=== PATIENT | male | born 1965 | race African-American/Black ===

== ENCOUNTER 2017-03-12 09:16 | Emergency (ER) | payer SELFPAY ==
[2017-03-12 10:07] LABS: #Basophils 0.1 thou/uL (0.0-0.2); #Lymphocytes 2.3 thou/uL (1.20-3.40); #Neutrophils 4.2 thou/uL (1.40-6.50); %Basophils 1.3 % (0.0-1.0); %Eosinophils 0.6 % (0.0-10.0); %Lymphocytes 30.2 % (21.0-51.0); %Monocytes 13.5 % (0.0-10.0); %Neutrophils 54.5 % (42.0-75.0); Hemoglobin 15.2 g/dL (14.0-18.0); Mean Corpuscular HGB CONC 32.2 g/dL (32.0-36.0); Mean Corpuscular Hemoglobin 32.6 pg (27.0-31.0); Mean Corpuscular Volume 101.1 fl (80.0-94.0); Mean Platelet Volume 7.5 fL (7.4-10.4); Platelet Count 236 thou/uL (130-400); RBC Distribution Width 12.1 % (11.5-14.5); Red Blood Cell (RBC) Count 4.66 mill/uL (4.70-6.10); White Blood Cell (WBC) Count 7.8 thou/uL (4.8-10.8)
--- NOTE | 2017-03-12 10:15 | RAD ---
LEFT ELBOW TWO VIEWS: HISTORY: Infection. Foreign body (glass). COMPARISON: None. FINDINGS: There is severe edema of the olecranon with swelling. No joint effusion. There is a small osteophyt e formation of the capitellum. No radiopaque foreign objects are seen on this examination. IMPRESSION: 1. Findings suggestive of olecranon bursitis. No radiopaque foreign object. 2. Dorsal elbow soft tissue defect. POS: H
[2017-03-12 10:18] LABS: Anion Gap 17 mmol/L (10-20); BUN (Urea Nitrogen) 17 mg/dL (8.4-25.7); Calc. Creatinine Clearance 0 mL/min (70-130); Calcium 9.2 mg/dL (7.8-10.44); Carbon Dioxide 24 mmol/L (22-29); Chloride 104 mmol/L (98-107); Estimated GFR-MDRD 74; Glucose 84 mg/dL (70-105); Potassium 4.2 mmol/L (3.5-5.1); Sodium 141 mmol/L (136-145)
[2017-03-12] MEDS ORDERED: cefTRIAXone\\ROCEPHIN 1 GM VIAL ONE (10:41)
[2017-03-12] MEDS ORDERED: Acetaminophen 325 MG TAB ONE (10:41)
[2017-03-12] MEDS ORDERED: Ketorolac Tromethamine 30 MG/ML VIAL ONE (10:41)
[2017-03-12] MEDS ORDERED: HYDROcodone/Acetaminophen 5/325 mg Tablet ONE (10:41)
[2017-03-12] MEDS ORDERED: Sodium Chloride 0.9% 100 ML BAG ONE (13:39)
== END 2017-03-12 11:25 | disposition home or self-care (01) ==
LOC: MADERS 09:16
DX: M70.22 Olecranon bursitis, left elbow (principal); F32.9 Major depressive disorder, single episode, unspecified; F17.210 Nicotine dependence, cigarettes, uncomplicated; Z79.899 Other long term (current) drug therapy
CPT/HCPCS: 80048; 85025; 85652; 96374; 96375; J0696; J1885; J7050

== ENCOUNTER 2018-03-03 07:45 | Emergency (ER) | payer SELFPAY | END 2018-03-03 08:17 | disposition home or self-care (01) | LOC: MADERS 07:45 | DX: L50.9 Urticaria, unspecified (principal); J06.9 Acute upper respiratory infection, unspecified; F32.9 Major depressive disorder, single episode, unspecified; F17.210 Nicotine dependence, cigarettes, uncomplicated | CPT/HCPCS: 99283 ==

== ENCOUNTER 2020-05-09 08:45 | Emergency (ER) | payer SELFPAY ==
--- NOTE | 2020-05-09 09:10 | RAD ---
EXAM: Single view of the chest HISTORY: Chest pain after smoking crack COMPARISON: None FINDINGS: Single view of the chest shows a normal sized cardiomediastinal silhouette. There is no isacc dence of consolidation, mass, or pleural effusion. No acute osseous abnormality. IMPRESSION: No evidence of acute cardiopulmonary disease
[2020-05-09 09:25] LABS: #Basophils 0.1 thou/uL (0.0-0.2); #Lymphocytes 1.7 thou/uL (1.20-3.40); #Monocytes 0.5 thou/uL (0.11-0.59); %Basophils 1.1 % (0.0-1.0); %Eosinophils 0.2 % (0.0-10.0); %Lymphocytes 20.1 % (21.0-51.0); %Monocytes 5.8 % (0.0-10.0); %Neutrophils 72.7 % (42.0-75.0); Hemoglobin 14.7 g/dL (14.0-18.0); Mean Corpuscular HGB CONC 32.8 g/dL (32.0-36.0); Mean Corpuscular Hemoglobin 31.9 pg (27.0-31.0); Mean Corpuscular Volume 97.3 fL (78.0-98.0); Mean Platelet Volume 7.2 fL (7.4-10.4); Platelet Count 217 thou/uL (130-400); RBC Distribution Width 11.7 % (11.5-14.5); White Blood Cell (WBC) Count 8.3 thou/uL (4.8-10.8)
[2020-05-09 09:43] LABS: ALT (SGPT) 35 U/L (8-55); AST (SGOT) 31 U/L (5-34); Albumin 4.1 g/dL (3.5-5.0); Alkaline Phosphatase 70 U/L (40-110); Anion Gap 16 mmol/L (10-20); BUN (Urea Nitrogen) 12 mg/dL (8.4-25.7); Bilirubin, Total 0.5 mg/dL (0.2-1.2); CK (CPK) 588 U/L (30-200); Calc. Creatinine Clearance 0 mL/min (70-130); Calcium 9.1 mg/dL (7.8-10.44); Carbon Dioxide 21 mmol/L (22-29); Chloride 106 mmol/L (98-107); Globulin 3.5 g/dL (2.4-3.5); Glucose 89 mg/dL (70-105); Potassium 4.3 mmol/L (3.5-5.1); Protein, Total 7.6 g/dL (6.0-8.3); Sodium 139 mmol/L (136-145)
[2020-05-09] MEDS ORDERED: Nitroglycerin 2% Ointment 1 INCH/1 GM Packet ONE (10:12)
[2020-05-09] MEDS ORDERED: Aspirin Chewable 81 MG TAB ONE (10:12)
[2020-05-09] MEDS ORDERED: Ketorolac Tromethamine 30 MG/ML VIAL ONE (12:03)
[2020-05-09] MEDS ORDERED: Mag-Al Plus 1200 MG/1200 MG/120 MG/30 ML UDCUP ONE (12:05)
[2020-05-09] MEDS ORDERED: Lidocaine Viscous Sol 2% 15 ml UD Cup ONE (12:05)
== END 2020-05-09 13:42 | disposition home or self-care (01) ==
LOC: MADERS 08:45
DX: R07.89 Other chest pain (principal); F17.210 Nicotine dependence, cigarettes, uncomplicated
CPT/HCPCS: 36415; 71045; 80053; 82550; 84484; 85025; 93005; 96372; J1885

== ENCOUNTER 2021-05-22 12:17 | Emergency (ER) | payer BC, SELFPAY ==
[2021-05-22] MEDS ORDERED: Lidocaine Viscous Sol 2% 15 ml UD Cup ONE (13:00)
[2021-05-22] MEDS ORDERED: Mag-Al Plus 1200 MG/1200 MG/120 MG/30 ML UDCUP ONE (13:00)
== END 2021-05-22 13:05 | disposition home or self-care (01) ==
LOC: MADERS 12:17
DX: K21.9 Gastro-esophageal reflux disease without esophagitis (principal); F17.210 Nicotine dependence, cigarettes, uncomplicated
CPT/HCPCS: 93005

== ENCOUNTER 2021-10-02 17:33 | Emergency (ER) | payer OTHER, BC ==
[2021-10-02 18:27] LABS: #Basophils 0.1 thou/uL (0.0-0.2); #Monocytes 0.7 thou/uL (0.11-0.59); #Neutrophils 5.5 thou/uL (1.40-6.50); %Basophils 0.8 % (0.0-1.0); %Eosinophils 0.4 % (0.0-10.0); %Lymphocytes 23.7 % (21.0-51.0); %Monocytes 8.9 % (0.0-10.0); %Neutrophils 66.2 % (42.0-75.0); Hemoglobin 14.4 g/dL (14.0-18.0); Mean Corpuscular HGB CONC 32.1 g/dL (32.0-36.0); Mean Corpuscular Hemoglobin 31.5 pg (27.0-31.0); Mean Platelet Volume 8.2 fL (7.4-10.4); Platelet Count 222 thou/uL (130-400); RBC Distribution Width 12.9 % (11.5-14.5); Red Blood Cell (RBC) Count 4.59 mill/uL (4.70-6.10); White Blood Cell (WBC) Count 8.3 thou/uL (4.8-10.8)
[2021-10-02] MEDS ORDERED: Orphenadrine Citrate 60 MG/2 ML VIAL ONE (18:28)
[2021-10-02] MEDS ORDERED: Boostrix 0.5 ML (Tdap) VIAL ONE (18:28)
[2021-10-02] MEDS ORDERED: CEFAZOLIN 2 GM VIAL ONE (18:28)
[2021-10-02] MEDS ORDERED: Sodium Chloride 0.9% 100 ML ONE (18:29)
[2021-10-02 18:41] LABS: ALT (SGPT) 24 U/L (8-55); AST (SGOT) 28 U/L (5-34); Alkaline Phosphatase 65 U/L (40-110); Anion Gap 14 mmol/L (10-20); BUN (Urea Nitrogen) 21 mg/dL (8.4-25.7); Bilirubin, Total 0.4 mg/dL (0.2-1.2); Calc. Creatinine Clearance 0 mL/min (70-130); Calcium 9.3 mg/dL (7.8-10.44); Carbon Dioxide 24 mmol/L (22-29); Chloride 107 mmol/L (98-107); Estimated GFR 82; Globulin 3.5 g/dL (2.4-3.5); Glucose 110 mg/dL (70-105); Potassium 4.3 mmol/L (3.5-5.1); Protein, Total 7.5 g/dL (6.0-8.3); Sodium 141 mmol/L (136-145)
[2021-10-02] MEDS ORDERED: HYDROcodone/Acetaminophen 5/325 mg Tablet ONE (20:23)
[2021-10-02] MEDS ORDERED: Bacitracin 1 PK ONE (21:32)
== END 2021-10-02 22:30 | disposition home or self-care (01) ==
LOC: MADERS 17:33
DX: S32.492A Other specified fracture of left acetabulum, initial encounter for closed fracture (principal); S81.011A Laceration without foreign body, right knee, initial encounter; K21.9 Gastro-esophageal reflux disease without esophagitis; W14.XXXA Fall from tree, initial encounter; Y93.H2 Activity, gardening and landscaping; Y92.69 Other specified industrial and construction area as the place of occurrence of the external cause; Z23 Encounter for immunization
CPT/HCPCS: 72170; 74177; 80053; 85025; 90471; 90715; 94760; 96365; 96372; J0690; J2360; J3490

== ENCOUNTER 2022-07-29 15:17 | Emergency (ER) | payer BC, SELFPAY ==
[~2022-07-29 15:17] MED LIST: Sodium Chloride 0.9% 1,000 ML BAG ONE
[2022-07-29 16:03] LABS: #Basophils 0.1 thou/uL (0.0-0.2); #Eosinphils 0.1 thou/uL (0.0-0.7); #Lymphocytes 1.6 thou/uL (1.20-3.40); #Monocytes 0.5 thou/uL (0.11-0.59); #Neutrophils 1.9 thou/uL (1.40-6.50); %Basophils 1.9 % (0.0-1.0); %Eosinophils 2.1 % (0.0-10.0); %Lymphocytes 38.8 % (21.0-51.0); %Monocytes 11.4 % (0.0-10.0); %Neutrophils 45.8 % (42.0-75.0); Hemoglobin 14.8 g/dL (14.0-18.0); Mean Corpuscular HGB CONC 32.3 g/dL (32.0-36.0); Mean Corpuscular Hemoglobin 32.9 pg (27.0-31.0); Mean Platelet Volume 9.1 fL (7.4-10.4); Platelet Count 211 10x3/uL (130-400); RBC Distribution Width 12.7 % (11.5-14.5); Red Blood Cell (RBC) Count 4.51 mill/uL (4.70-6.10); White Blood Cell (WBC) Count 4.2 10x3/uL (4.8-10.8)
[2022-07-29 16:12] LABS: Acetaminophen Less than 10.0 mcg/mL (10.0-30.0); Alcohol Less than 10 mg/dL (Less than 10); CK (CPK) 297 U/L (30-200); Salicylate Less than 8.0 mg/dL (15.0-30.0)
[2022-07-29 16:48] LABS: Chloride 107 mmol/L (98-107); Potassium 3.7 mmol/L (3.5-5.1); Sodium 142 mmol/L (136-145)
[2022-07-29 16:49] LABS: Anion Gap 14 mmol/L (10-20); BUN (Urea Nitrogen) 14 mg/dL (8.4-25.7); Bilirubin, Total 0.3 mg/dL (0.2-1.2); Calc. Creatinine Clearance 0 mL/min (70-130); Calcium 8.6 mg/dL (7.6-10.4); Carbon Dioxide 25 mmol/L (22-29); Estimated GFR 70; Glucose 109 mg/dL (70-105); Protein, Total 6.7 g/dL (6.0-8.3)
[2022-07-29 16:50] LABS: ALT (SGPT) 18 U/L (8-55); AST (SGOT) 22 U/L (5-34); Albumin 3.6 g/dL (3.5-5.0); Alkaline Phosphatase 53 U/L (40-110); Globulin 3.1 g/dL (2.4-3.5)
== END 2022-07-29 18:05 | disposition home or self-care (01) ==
LOC: MADERS 15:17
DX: E86.0 Dehydration (principal)
CPT/HCPCS: 36415; 70450; 80053; 80307; 82550; 84484; 85025; 93005; 94760; 96360; J7050

== ENCOUNTER 2022-10-29 12:10 | Emergency (ER) | payer OTHER ==
[2022-10-29] MEDS ORDERED: Sodium Chloride 0.9% 1,000 ML ONE (13:04)
[2022-10-29 13:20] LABS: Band 10 % (5-11); Hematocrit 52.4 % (42.0-52.0); Hemoglobin 17.1 g/dL (14.0-18.0); Lymphocytes 19 % (21-51); MDiff Complete? YES; Mean Corpuscular HGB CONC 32.7 g/dL (32.0-36.0); Mean Corpuscular Volume 100.9 fl (78.0-98.0); Mean Platelet Volume 8.1 fL (7.4-10.4); Monocytes 7 % (0-10); Neutrophil 64 % (42-75); Platelet Adequacy Comment Appears Adequate; Platelet Count 211 10x3/uL (130-400); RBC Distribution Width 13.3 % (11.5-14.5); Red Blood Cell (RBC) Count 5.19 mill/uL (4.70-6.10); White Blood Cell (WBC) Count 7.7 10x3/uL (4.8-10.8)
[2022-10-29 13:59] LABS: ALT (SGPT) 48 U/L (8-55); AST (SGOT) 47 U/L (5-34); Albumin 3.9 g/dL (3.5-5.0); Alkaline Phosphatase 69 U/L (40-110); Anion Gap 16 mmol/L (10-20); BUN (Urea Nitrogen) 14 mg/dL (8.4-25.7); Bilirubin, Total 0.5 mg/dL (0.2-1.2); CK (CPK) 68 U/L (30-200); Calc. Creatinine Clearance 0 mL/min (70-130); Calcium 9.4 mg/dL (7.8-10.44); Carbon Dioxide 25 mmol/L (22-29); Chloride 102 mmol/L (98-107); Estimated GFR 69; Globulin 3.9 g/dL (2.4-3.5); Glucose 116 mg/dL (70-105); Magnesium 2.1 mg/dL (1.6-2.6); Potassium 4.2 mmol/L (3.5-5.1); Protein, Total 7.8 g/dL (6.0-8.3); Sodium 139 mmol/L (136-145)
[2022-10-29 14:05] LABS: Bilirubin Small (Negative); Blood, Urine Trace (Negative); Clarity Clear (Clear); Glucose, Urine (Dipstick) Negative (Negative); Ketone, Urine Negative (Negative); Leukocyte Negative (Negative); Nitrite Negative (Negative); Protein, Urine (Dipstick) 100 mg/dL (Neg-Trace)
[2022-10-29 14:07] LABS: Specific Gravity, Urine 1.027 (1.005-1.030)
[2022-10-29 14:10] LABS: CAUTI Indications for Culture Dysuria,urgency,freq; RBC/HPF 0-3 HPF (0-3); WBC/HPF 0-3 HPF (0-3)
[2022-10-29 14:12] LABS: Bacteria/HPF Rare-Few HPF (None Seen); Mucous/LPF 1+ LPF (<2+); Squamous Epithelial 0-3 HPF (0-3)
[2022-10-29 14:13] LABS: Urine Culture Reflex No No
[2022-10-29 14:31] LABS: Troponin I 0.044 ng/mL (< 0.028)
[2022-10-29] MEDS ORDERED: Aspirin Chewable 81 MG TAB ONE (15:39)
[2022-10-29 15:55] LABS: Amphetamine Not Detected (NotDetected); Barbiturates Screen Not Detected (NotDetected); Benzodiazepine Screen Not Detected (NotDetected); Cocaine Metabolite Screen Detected (NotDetected); Methadone Not Detected (NotDetected); Methamphetamine Not Detected (NotDetected); Opiate Screen Not Detected (NotDetected); Oxycodone Screen Not Detected (NotDetected); Phencyclidine (PCP) Not Detected (NotDetected); THC/Cannabinoid Screen Detected (NotDetected); Tricyclic Screen Not Detected (NotDetected)
[2022-10-29 16:42] LABS: SARS-CoV-2 NAA Rapid Test Not Detected (NotDetected)
== END 2022-10-29 17:14 | disposition short-term general hospital (02) ==
LOC: MADERS 12:10
DX: E86.0 Dehydration (principal); J06.9 Acute upper respiratory infection, unspecified; R55 Syncope and collapse; R77.8 Other specified abnormalities of plasma proteins; Z20.822 Contact with and (suspected) exposure to COVID-19
CPT/HCPCS: 70450; 71045; 72125; 72170; 80053; 80306; 81001; 82550; 83735; 83880; 84484; 85025; 87081; 87430; 93005; 96360; J7050

== ENCOUNTER 2024-01-09 12:09 | Emergency (ER) | payer OTHER, SELFPAY ==
[2024-01-09] MEDS ORDERED: Ibuprofen 800 MG TAB ONE (13:52)
[2024-01-09] MEDS ORDERED: Acetaminophen 500 MG TAB ONE (13:52)
== END 2024-01-09 14:20 | disposition home or self-care (01) ==
LOC: MADERS 12:09
DX: M25.561 Pain in right knee (principal); F17.210 Nicotine dependence, cigarettes, uncomplicated
CPT/HCPCS: 99283